=== PATIENT | male | born 1945 | race Caucasian/White ===

== ENCOUNTER 2024-01-31 02:13 | Emergency (ER) | payer MEDICARE ==
--- NOTE | 2024-01-31 02:22 | ED Physician Documentation ---
PD HPI MALE - Stated complaint Stated Complaint: /PAIN - History obtained from History obtained from: Patient - Additional information Additional information: HPI from patient. Patient complains of urinary retention. He says he has urge to urinate but has not had any urine output for approximately 14 hours; he has had gradually worsening suprapubic pain and pressure. Yesterday, he had chest port placement in anticipation of chemotherapy to be started in 2 days for treatment of esophageal cancer. He also underwent exploratory laparoscopy yesterday, as well. Patient says he has never had problems with urinary retention in the past. He does, however, say he knows he has BPH for which he takes tamsulosin. He is not sure if he has a urologist. PD PAST MEDICAL HISTORY - Past Medical History Past Medical History: Yes Other Past Medical History: esophageal CA - Present Medications Home Medications: Ambulatory Orders Medication Instructions Recorded Confirmed Aspirin [Vazalore] 81 mg PO DAILY 01/31/24 01/31/24 Atorvastatin [Lipitor] 20 mg PO DAILY 01/31/24 01/31/24 Finasteride [Proscar] 5 mg PO DAILY 01/31/24 01/31/24 Lisinopril/Hydrochlorothiazide 20 - 25 mg PO DAILY 01/31/24 01/31/24 [Zestoretic 20-25 mg Tablet] Metoprolol Tartrate [Lopressor] 25 mg PO BID 01/31/24 01/31/24 Tamsulosin [Flomax] 0.4 mg PO BID 01/31/24 01/31/24 - Allergies Allergies/Adverse Reactions: Allergies Allergy/AdvReac Type Severity Reaction Status Date / Time No Known Drug Allergies Allergy Verified 01/31/24 02:26 PD ED PE NORMAL - Vitals Vital signs reviewed: Yes - General General: Alert and oriented X 3, No acute distress, Well developed/nourished - Abdomen Abdomen: Soft, Non tender, Non distended, Other (surgical (trochar) sites are C/D/I without erythema or d/c) Results - Vitals Vitals: Vital Signs - 24 hr 01/31/24 01/31/24 02:19 03:49 Temperature 36.2 C L 36.3 C L Heart Rate 63 62 Respiratory 16 16 Rate Blood Pressure 112/56 L 122/67 O2 Saturation 97 100 Oxygen O2 Source Room air PD Medical Decision Making - ED course Complexity details: considered differential, d/w patient ED course: ED RN placed a 16 Romans[place] Sawyer catheter without difficulty nor resistance. Brisk return of approximately 650 cc of clear yellow urine which correlated with complete resolution of patient's symptoms. We discussed options of leaving catheter in versus removal prior to d/c, and I recommended leaving the catheter in place for 3 to 5 days. Patient agrees with this plan. Instructed him to seek follow-up with PCP within that timeframe for catheter removal. I further advised him that if this cannot be arranged, he can go to a walk-in clinic, urgent care center, or even return to the emergency department. I also discussed with him the option of removing the catheter himself, and he is open to this as a possible means of removal within the 3 to 5-day timeframe. He is provided a 10 cc syringe and carefully instructed on how to remove the catheter. Departure - Departure Disposition: 01 Home, Self Care Clinical Impression: Urinary retention Condition: Good Instructions: ED Catheter Care [place], ED Retention Urinary Male Follow-Up: TRISTIN ROGER DO [Primary Care Provider] - Comments: Follow-up with your primary care provider in 3 to 5 days for removal of the catheter. If you cannot arrange for an appointment within that timeframe, other options would be to go to a walk-in clinic, urgent care center, or even to return to the emergency department. As we discussed, another option, provided you are comfortable with this, is to remove the catheter your self. Follow the directions that we discussed: Use the provided syringe on the port (blind-end) and remove all of the fluid by drawing back on the syringe; there should be approximately 10 cc of fluid to remove. If the syringe completely fills with fluid, empty it, and repeat until no more fluid is withdrawn. You can then slowly pull traction outwards away from your penis on the catheter; it should come out without any resistance and only mild discomfort.
[2024-01-31] MEDS: LIDOCAINE 2% URO-JET 5 ML SYRINGE UR STA (02:50)
[2024-01-31 03:57] VITALS: BP 122/67; O2SAT 100
== END 2024-01-31 03:52 | disposition home or self-care (01) ==
LOC: ED 02:13
DX: R33.9 Retention of urine, unspecified (principal); C15.9 Malignant neoplasm of esophagus, unspecified; Z79.899 Other long term (current) drug therapy
CPT/HCPCS: 51702; 99283

== ENCOUNTER 2024-03-25 09:06 | Emergency (ER) | payer MEDICARE ==
--- NOTE | 2024-03-25 09:24 | ED Physician Documentation ---
PD HPI MALE - Stated complaint Stated Complaint: GI, POST CHEMO, LOW PLATELETS - Chief complaint Chief Complaint: Abd Pain - History obtained from History obtained from: Patient - History of Present Illness Timing - onset: Yesterday Timing - duration: Days (1) Timing - details: Abrupt onset Associated symptoms: Dysuria, Urinary frequency, Hematuria. No: Genital sore / lesion, Testiclar pain Similar symptoms before: Has not had sx before Review of Systems Constitutional: denies: Fever, Chills GI: denies: Nausea, Vomiting Musculoskeletal: denies: Back pain PD PAST MEDICAL HISTORY - Past Medical History Past Medical History: Yes Cardiovascular: [place], Arrhythmia : Retention - Past Surgical History Past Surgical History: Yes Cardiovascular: Coronary stent - Present Medications Home Medications: Ambulatory Orders Medication Instructions Recorded Confirmed Aspirin [Vazalore] 81 mg PO DAILY 01/31/24 01/31/24 Atorvastatin [Lipitor] 20 mg PO DAILY 01/31/24 01/31/24 Finasteride [Proscar] 5 mg PO DAILY 01/31/24 01/31/24 Lisinopril/Hydrochlorothiazide 20 - 25 mg PO DAILY 01/31/24 01/31/24 [Zestoretic 20-25 mg Tablet] Metoprolol Tartrate [Lopressor] 25 mg PO BID 01/31/24 01/31/24 Tamsulosin [Flomax] 0.4 mg PO BID 01/31/24 01/31/24 Phenazopyridine HCl [Pyridium] 100 mg PO TID PRN #15 tablet 03/25/24 cephALEXin [Keflex] 500 mg PO TID #20 cap 03/25/24 - Allergies Allergies/Adverse Reactions: Allergies Allergy/AdvReac Type Severity Reaction Status Date / Time oxycodone AdvReac Nausea Verified 03/25/24 09:14 - Social History Does the pt smoke?: No Smoking Status: Never smoker Does the pt drink ETOH?: Yes Does the pt have substance abuse?: No - Immunizations Immunizations are current?: Yes PD ED PE NORMAL - Vitals Vital signs reviewed: Yes - General General: Alert and oriented X 3, No acute distress, Well developed/nourished - Abdomen Abdomen: Soft, Non tender - Male Male : Deferred - Back Back: No CVA TTP Results - Vitals Vitals: Vital Signs - 24 hr 03/25/24 03/25/24 09:14 10:34 Temperature 36.4 C L 36.5 C Heart Rate 48 L 50 L Respiratory 16 16 Rate Blood Pressure 128/72 122/70 O2 Saturation 99 98 Oxygen O2 Source Room air - Labs Labs: Laboratory Tests 03/25/24 03/25/24 03/25/24 09:35 09:49 09:49 WBC 4.3 L RBC 4.65 L Hgb 11.7 L Hct 38.2 L MCV 82.2 MCH 25.2 L MCHC 30.6 L RDW 22.1 H Plt Count 127 L MPV 8.3 Neut # (Auto) 3.3 Lymph # (Auto) 0.5 L [place] # (Auto) 0.4 Eos # (Auto) 0.0 Baso # (Auto) 0.0 Absolute Nucleated RBC 0.00 Nucleated RBC % 0.0 RBC Morph Micro Appear 1+ OVALOCYTES Sodium 137 Potassium 3.4 L Chloride 104 Carbon Dioxide 25 Anion Gap 8.0 BUN 17 Creatinine 0.7 Estimated GFR (MDRD) 108 Glucose 123 H Calcium 9.4 Urine Color RED/BLOODY Urine Clarity BLOODY Urine pH 6.0 Ur Specific [place] >=1.030 H Urine Protein >=300 H Urine Glucose (UA) NEGATIVE Urine Ketones >=80 H Urine Occult Blood LARGE H Urine Nitrite NEGATIVE Urine Bilirubin SMALL H Urine Urobilinogen 1 (NORMAL) Ur Leukocyte Esterase NEGATIVE Urine RBC TNTC H Urine WBC >25 H Ur Squamous Epith Cells RARE Squamous Urine Bacteria Many H Ur Microscopic Review INDICATED Urine Culture Comments INDICATED PD Medical Decision Making - ED course Complexity details: considered differential (Dysuria with frequency and hematuria just for the last day with notable hematuria this morning. No symptoms of retention and bladder scanner shows minimal amount retained. Urinalysis in addition to blood does show infection. Will treat as UTI.), d/w patient Reviewed Lab Results: Urinalysis shows tanner blood but also leukocytes and bacteria combined with his symptoms is consistent with UTI with hematuria. Renal function is normal on blood testing. He is slightly anemic at 11.7 hemoglobin. White count is normal. Platelet count is low but not significantly at 127. I think we can treat this as a simple UTI/cystitis with hematuria. Is cautioned to follow-up with the primary care and consideration of urology certainly if any persisting symptoms or recurrent hematuria but infection is common enough because for blood in urine. Departure - Departure Disposition: Home, Self Care Clinical Impression: Dysuria UTI (urinary tract infection) Qualifiers: Urinary tract infection type: acute cystitis Hematuria presence: with hematuria Qualified Code(s): N30.01 - Acute cystitis with hematuria Condition: Stable Record reviewed to determine appropriate education?: Yes Instructions: ED UTI Cystitis Male Follow-Up: TRISTIN ROGER DO [Primary Care Provider] - Prescriptions: cephALEXin [Keflex] 500 mg PO TID #20 cap Phenazopyridine HCl [Pyridium] 100 mg PO TID PRN #15 tablet PRN Reason: Abdominal Pain Comments: You do have blood in the urine but the urine test in the lab does show indications for infection as well with white cells and bacteria. Blood with a bladder infection due to rawness is not too unusual and occurs perhaps 1 out of 5 times. You do seem to be emptying your bladder adequately. Your platelet count is slightly low at 127 but not enough to warrant intervention. Your kidney function is good. We would treat your bladder infection with an antibiotic as well as some medication to help with the discomfort. I prescribed Keflex and phenazopyridine for these. You can use Tylenol very 4 to 6 hours if needed for pains. The discomfort and bleeding should decrease and stop over the next 2 to 3 days. I will start feeling better even later today. We will do urine culture the sample. This will result in a couple of days and we will call you if we need to change the antibiotic choice based on it. I sent your prescriptions to [facility] pharmacy in [place]. Forms: PCP List Discharge Date/Time: 03/25/24 10:35
[2024-03-25 09:56] LABS: BILIRUBIN,URINE SMALL (NEGATIVE); GLUCOSE, URINE (UA) NEGATIVE (NEGATIVE); KETONES,URINE (UA) >=80 mg/dL (NEGATIVE); LEUKOCYTE ESTERASE, URINE NEGATIVE (NEGATIVE); NITRITE,URINE NEGATIVE (NEGATIVE); OCCULT BLOOD,URINE LARGE (NEGATIVE); PROTEIN,URINE >=300 mg/dL (NEGATIVE); UROBILINOGEN,URINE 1 (NORMAL) E.U./dL (NORMAL)
[2024-03-25 09:58] LABS: BASOPHILS % (AUTO) 0.9 %; EOSINOPHILS % (AUTO) 0.5 %; HCT - HEMATOCRIT 38.2 % (42.0-52.0); HGB - HEMOGLOBIN 11.7 g/dL (14.0-18.0); LYMPHOCYTES # (AUTO) 0.5 10^3/uL (1.5-3.5); LYMPHOCYTES % (AUTO) 11.3 %; MEAN CORPUSCULAR HEMOGLOBIN 25.2 pg (27.0-31.0); MEAN CORPUSCULAR HGB CONC 30.6 g/dL (32.0-36.0); MEAN CORPUSCULAR VOLUME 82.2 fL (80.0-94.0); MEAN PLATELET VOLUME 8.3 fL (7.4-11.4); MONOCYTES # (AUTO) 0.4 10^3/uL (0.0-1.0); MONOCYTES % (AUTO) 9.6 %; NEUTROPHILS # (AUTO) 3.3 10^3/uL (1.5-6.6); NEUTROPHILS % (AUTO) 77.2 %; PLT - PLATELET COUNT 127 10^3/uL (130-450); RED BLOOD COUNT 4.65 10^6/uL (4.70-6.10); RED CELL DISTRIBUTION WIDTH 22.1 % (12.0-15.0); WHITE BLOOD COUNT 4.3 x10^3/uL (4.8-10.8)
[2024-03-25 09:59] LABS: BACTERIA,URINE Many /HPF (None Seen); CLARITY,URINE BLOODY (CLEAR); RBC,URINE TNTC /HPF (0-5); SQUAMOUS EPITHELIAL CELL,UR RARE Squamous (<= Few)
[2024-03-25 10:00] LABS: WBC,URINE >25 /HPF (0-3)
[2024-03-25 10:06] LABS: CALCIUM 9.4 mg/dL (8.5-10.3); CREATININE 0.7 mg/dL (0.6-1.3); POTASSIUM 3.4 mmol/L (3.5-4.5)
[2024-03-25] MEDS: PHENAZOPYRIDINE 100 MG TABLET PO STA (10:22)
[2024-03-25] MEDS: cephALEXin 250 MG CAPSULE PO STA (10:22)
[2024-03-25 10:37] VITALS: BP 122/70; O2SAT 98
--- NOTE | 2024-03-27 19:04 | ED Physician Documentation ---
ED Addendum - Addendum Addendum: 03/27/24 19:03 The patient's urine culture came back showing Enterobacter cloque complex resistant to cefazolin. He had been discharged on Keflex. It is sensitive to nitrofurantoin and trimethoprim sulfa as well as quinolones. Given his age of 79, I would be more inclined to not use Bactrim. Given symptoms I would be less inclined for Macrobid. Therefore I will change him to ciprofloxacin and send it to his pharmacy. Will have nursing contact him to advise.
== END 2024-03-25 10:35 | disposition home or self-care (01) ==
LOC: SUPCPDRO 09:06 → ED 09:06
DX: N30.01 Acute cystitis with hematuria (principal); B96.89 Other specified bacterial agents as the cause of diseases classified elsewhere; I25.2 Old myocardial infarction
CPT/HCPCS: 36415; 51798; 80048; 81001; 85025; 87077; 87086; 87181; 99283; 99284; A9270; 81003